=== PATIENT | female | born 1970 | race Caucasian/White ===

== ENCOUNTER 2025-03-15 08:07 | Day surgery (SDC) | payer OTHER ==
[~2025-03-15] VITALS: Ht 165.1 cm; Wt 113.9 kg
[~2025-03-15 08:07] MED LIST: ALBU8.5H; ASPI81CH48 PO; ATOR80TA59 PO; BACL1TAB9 PO; DIAZ5TAB PO; GABA-1490 PO; INSU100I24; LANTINJ4 SC; LANTINJ4 SQ; PHENYLEPHRINE 10% OPHTH SOL 5ML OS PRN; PROP10TA56 PO; TRAZ-257 PO
[2025-03-15] MEDS ORDERED: MIDAZOLAM INJ 2MG/2ML VIAL As Ordered ONE (08:20)
[2025-03-15] MEDS ORDERED: fentaNYL 100 MCG/2 ML INJECTION As Ordered ONE (08:20)
[2025-03-15] MEDS: OFLOXACIN 0.3 % (OCUFLOX) OPTH SOL 5ML OS ONE (08:50)
[2025-03-15] MEDS: LIDOCAINE 3.5 % 1ML OPHTH TOPICAL GEL OU ONE (09:06)
[2025-03-15] MEDS: TROPICAMIDE 1% OPHTH SOLN 15ML OS SCH (09:06)
[2025-03-15] MEDS: PHENYLEPHRINE 2.5% OPHTH SOL 2ML OS SCH (09:06)
[2025-03-15] MEDS: CYCLOPENTOLATE 1% OPHTH SOLN 2ML BTL OS SCH (09:07)
[2025-03-15] MEDS ORDERED: DEXTROSE 50% 50ML SYRINGE IV PRN (09:20)
[2025-03-15] MEDS ORDERED: GLUCAGON INJ 1MG VIAL SC PRN (09:20)
[2025-03-15] MEDS ORDERED: GLUCOSE 4 GM CHEW PO PRN (09:20)
[2025-03-15] MEDS: INSULIN LISPRO (NovoLOG) PER UNIT SC PRN (09:37)
[2025-03-15] MEDS ORDERED: ONDANSETRON 4MG 2ML VIAL As Ordered ONE (09:50)
[2025-03-15] MEDS: LIDOCAINE 1% SDV 5ML VIAL As Ordered ONE (09:53)
[2025-03-15] MEDS: BSS IRRIG/VANCO(10MG)/TOBRA(5MG)/EPINEPH(1:1000-0.5CC)500ML BAG-ORONLY As Ordered ONE (09:53)
[2025-03-15] MEDS: CEFUROXIME 1MG/0.1ML INTRACAMERAL INJ As Ordered ONE (09:53)
[2025-03-15 10:07] VITALS: BP 174/81; TEMP 97.2; O2SAT 96
== END 2025-03-15 10:36 | disposition home or self-care (01) ==
LOC: M SDC 08:07
PROVIDERS: ATTEND Ophthalmology
DX: E11.36 Type 2 diabetes mellitus with diabetic cataract (principal); H25.12 Age-related nuclear cataract, left eye; I10 Essential (primary) hypertension; E11.40 Type 2 diabetes mellitus with diabetic neuropathy, unspecified; Z79.82 Long term (current) use of aspirin; Z79.899 Other long term (current) drug therapy; Z79.4 Long term (current) use of insulin; Z86.73 Personal history of transient ischemic attack (TIA), and cerebral infarction without residual deficits; Z90.710 Acquired absence of both cervix and uterus
CPT/HCPCS: 66984; J0697; J2250; J2405; J3010; V2632

== ENCOUNTER → 2025-03-22 | Day surgery (SDC) | payer OTHER ==
[~2025-03-22] VITALS: Ht 165.1 cm; Wt 116.4 kg
[~2025-03-22] MED LIST changes: +INSULIN LISPRO (NovoLOG) PER UNIT SC PRN; +METOCLOPRAMIDE INJ 10MG/2ML VIAL As Ordered ONE; +MIDAZOLAM INJ 2MG/2ML VIAL As Ordered ONE; +ONDANSETRON 4MG 2ML VIAL As Ordered ONE; +PHENYLEPHRINE 10% OPHTH SOL 5ML OD PRN; -PHENYLEPHRINE 10% OPHTH SOL 5ML OS PRN; +fentaNYL 100 MCG/2 ML INJECTION As Ordered ONE
[2025-03-22] MEDS: OFLOXACIN 0.3 % (OCUFLOX) OPTH SOL 5ML OD ONE (07:02)
[2025-03-22] MEDS: PHENYLEPHRINE 2.5% OPHTH SOL 2ML OD SCH (07:02)
[2025-03-22] MEDS: LIDOCAINE 3.5 % 1ML OPHTH TOPICAL GEL OU ONE (07:02)
[2025-03-22] MEDS: CYCLOPENTOLATE 1% OPHTH SOLN 2ML BTL OD SCH (07:02)
[2025-03-22] MEDS: TROPICAMIDE 1% OPHTH SOLN 15ML OD SCH (07:03)
[2025-03-22] MEDS: SCOPOLAMINE 1MG TRANSDERMAL PATCH TOP ONE (07:18)
[2025-03-22] MEDS: CEFUROXIME 1MG/0.1ML INTRACAMERAL INJ As Ordered ONE (07:44)
[2025-03-22] MEDS: LIDOCAINE 1% SDV 5ML VIAL As Ordered ONE (07:44)
[2025-03-22] MEDS: BSS IRRIG/VANCO(10MG)/TOBRA(5MG)/EPINEPH(1:1000-0.5CC)500ML BAG-ORONLY As Ordered ONE (07:44)
[2025-03-22 08:00] VITALS: BP 144/70; TEMP 97.9; O2SAT 96
== END | disposition home or self-care (01) ==
LOC: M SDC 06:40 → EDUNIT# 11:00
PROVIDERS: ATTEND Ophthalmology
DX: E11.36 Type 2 diabetes mellitus with diabetic cataract (principal); H25.11 Age-related nuclear cataract, right eye; E11.40 Type 2 diabetes mellitus with diabetic neuropathy, unspecified; I10 Essential (primary) hypertension; Z79.899 Other long term (current) drug therapy; Z79.4 Long term (current) use of insulin; Z86.73 Personal history of transient ischemic attack (TIA), and cerebral infarction without residual deficits; Z90.710 Acquired absence of both cervix and uterus
CPT/HCPCS: 66984; J0697; J2250; J2405; J3010; V2632